=== PATIENT | female | born 1985 | race Caucasian/White ===

== ENCOUNTER → 2017-03-26 | Outpatient (CLI) | payer OTHER | LOC: M LAB 11:46 | PROVIDERS: ATTEND Obstetrics & Gynecology | DX: N97.9 Female infertility, unspecified (principal) ==

== ENCOUNTER → 2017-07-01 | Outpatient (CLI) | payer OTHER ==
--- NOTE | 2017-07-01 13:51 | REP ---
TRANSVAGINAL PELVIC SONOGRAPHY: HISTORY: Infertility study. FINDINGS: Uterine dimensions are normal at 8.1 x 5.3 x 5.9 cm. Endometrial echo is 0.9 cm thick. There is a Nabothian cyst in the cervix. Multiple tiny endometrial cystic changes are seen. No free fluid. Right ovary dimensions are 3.7 x 2.3 x 3.5 cm. The right ovary contains two follicles over a centimeter measured as follows: 1.0 x 0.5 and 1.0 x 0.6 cm. In addition there are 16 follicles in the right ovary ranging in size from 0.3-0.8 cm. The overall dimensions of the left ovary today are 4.3 x 2.4 x 2.7 cm. There are 37 follicles in the left ovary ranging in size from 0.1-0.9 cm. IMPRESSION: Transvaginal pelvic sonography, ovarian follicle study as above. Signed by Ramakrishna Mac MD 07/01/2017 03:59 P
[2017-07-01 14:12] LABS: HCG, SERUM QUANTITATIVE < 1.0 MIU/ML
[2017-07-02 11:13] LABS: LUTEINIZING HORMONE 14.2 mIU/mL; PROGESTERONE 0.3 NG/ML
[2017-07-02 11:14] LABS: ESTRADIOL 51.1 PG/ML
[2017-07-02 11:15] LABS: FOLLICLE STIMULATING HORMONE 7.1 mIU/mL
== END ==
LOC: M RAD 12:40 → M LAB 12:40
PROVIDERS: ATTEND Obstetrics & Gynecology Reproductive Endocrinology
DX: E28.9 Ovarian dysfunction, unspecified (principal)

== ENCOUNTER → 2017-07-16 | Outpatient (CLI) | payer OTHER ==
[2017-07-16 07:21] LABS: HCG, SERUM QUANTITATIVE < 1.0 MIU/ML; LUTEINIZING HORMONE 9.9 mIU/mL; PROGESTERONE < 0.2 NG/ML
[2017-07-16 07:22] LABS: ESTRADIOL 49.2 PG/ML; FOLLICLE STIMULATING HORMONE 6.9 mIU/mL
--- NOTE | 2017-07-16 07:44 | REP ---
Pelvic ultrasound, endovaginal imaging for follicle analysis: Right ovary: There are no follicles greater than 10 mm. There are approximately 18 follicles measuring 1.5 the 5.5 mm. There is a 6.2 mm involuting cyst. The right ovary is normal size measuring 4.4-0.0 x 2.3 cm. Left ovary: There are no follicles greater than 10 mm. There approximate 35 follicles measuring 2.0 to 7.9 mm. The left ovary is normal size measuring 3.8 x 2.5 x 2.5 cm. The uterus is retroverted and normal size measuring 7.8-5.0 x 6.3 cm. The endometrium is not thickened measuring 6.3 mm and has a trilaminar appearance. A Nabothian cyst is incidentally noted. Signed by Hitesh Hernandez MD 07/16/2017 07:36 A
== END ==
LOC: M LAB 06:35
PROVIDERS: ATTEND Obstetrics & Gynecology Reproductive Endocrinology
DX: N97.9 Female infertility, unspecified (principal)

== ENCOUNTER → 2017-07-23 | Outpatient (CLI) | payer OTHER ==
--- NOTE | 2017-07-23 08:26 | REP ---
Pelvic ultrasound for follicle analysis, endovaginal imaging: Right ovary: There are no follicles greater than 10 mm in diameter. There are 33 follicles measuring 2.1 - 8.3 mm. In addition there is a focal echogenic area measuring 0.6 x 0.4 centimeters. The right ovary is normal size measuring 4.3 x 3.0 x 2.5 cm. Left ovary: There is one follicle greater than 10 mm maximally measuring up to 11.9 mm. In addition, there are 19 follicles measuring 2.7 - 8.9 mm. The left ovary is normal size measuring 4.0 x 2.8 x 3.0 cm. Uterus: The uterus is retroverted and normal size measuring 7.4 x 5.3 x 6.2 cm. The endometrium is not thickened measuring up to 6.7 mm. There is a small volume of free fluid in the endometrial canal measuring 2.1 mm thickness. There is 1.7 mm calcification in the cervix adjacent to the endocervical canal. There is a trace of free fluid in the posterior cul-de-sac. Signed by Hitesh Hernandez MD 07/23/2017 08:17 A
[2017-07-23 08:48] LABS: ESTRADIOL 36.7 PG/ML; LUTEINIZING HORMONE 25.6 mIU/mL; PROGESTERONE < 0.2 NG/ML
== END ==
LOC: M RAD 06:30
PROVIDERS: ATTEND Obstetrics & Gynecology Reproductive Endocrinology
DX: E28.2 Polycystic ovarian syndrome (principal)

== ENCOUNTER → 2017-07-26 | Outpatient (CLI) | payer OTHER ==
--- NOTE | 2017-07-26 07:55 | REP ---
Pelvic ultrasound, endovaginal imaging only, stat request for follicle analysis: Right ovary: There is one follicle greater than 10 mm measuring up to 10.2 mm. Additionally, there are 22 follicles measuring 1.9 a 8.8 mm. Right ovary is normal size measuring 4.0 x 2.50 point 03/31. Left ovary: There is one follicle. 10 mm, measuring up to 15.8 mm. Additionally, there are 13 follicles measuring 0.1 to 7.6 mm. The left ovary is normal size measuring 4.7 x 2.4 x 2.8 cm. The uterus is retroverted and normal size measuring 7.5 x 4 point of by 5.4 cm. The endometrium is not thickened measuring 9.3 mm and the endometrium has a homogeneous echotexture. Signed by Hitesh Hernandez MD 07/26/2017 07:47 A
[2017-07-26 10:28] LABS: LUTEINIZING HORMONE 13.1 mIU/mL; PROGESTERONE 0.2 NG/ML
[2017-07-26 10:29] LABS: ESTRADIOL 89.7 PG/ML
== END ==
LOC: M RAD 06:29
PROVIDERS: ATTEND Obstetrics & Gynecology Reproductive Endocrinology
DX: N97.9 Female infertility, unspecified (principal)

== ENCOUNTER → 2017-07-28 | Outpatient (CLI) | payer OTHER ==
--- NOTE | 2017-07-28 07:58 | REP ---
Transvaginal pelvic sonography: History: Infertility study. Ovarian follicle assessment. Findings: Uterine dimensions today are 7.8 x 4.6 x 5.7 cm. Endometrial echo is 0.9 cm thick. There is a small calcification in the lower uterine segment. The overall dimensions of the right ovary are 4.5 x 2.9 x 2.9 cm. In the right ovary, there is a 1.0 x 0.7 cm follicle and 18 follicles are seen in the right ovary ranging in size from 0.3-0.9 cm. There is a 0.5 cm echogenic area in the right ovary which may be a small hemorrhagic follicle. The left ovary dimensions are 3.7 x 2.4 x 2.6 cm. There is a 1.8 x 1.8 cm follicle in the left ovary. In addition, the left ovary contains 12 follicles ranging in size from 0.3-0.9 cm. Impression: Ovarian follicle study as above. Please print and fax worksheet as preliminary report. Signed by Ramakrishna Mac MD 07/28/2017 08:17 A
[2017-07-28 09:25] LABS: LUTEINIZING HORMONE 19.7 mIU/mL; PROGESTERONE < 0.2 NG/ML
[2017-07-28 09:27] LABS: ESTRADIOL 170.9 PG/ML
== END ==
LOC: M RAD 06:35
PROVIDERS: ATTEND Obstetrics & Gynecology Reproductive Endocrinology
DX: N97.9 Female infertility, unspecified (principal)

== ENCOUNTER → 2017-08-13 | Outpatient (CLI) | payer OTHER ==
[2017-08-13 10:37] LABS: PROGESTERONE 24.1 NG/ML
== END ==
LOC: M LAB 07:25
PROVIDERS: ATTEND Obstetrics & Gynecology Reproductive Endocrinology
DX: Z32.00 Encounter for pregnancy test, result unknown (principal)

== ENCOUNTER → 2017-08-16 | Outpatient (CLI) | payer OTHER ==
[2017-08-16 11:48] LABS: PROGESTERONE 17.6 NG/ML
[2017-08-16 11:52] LABS: ESTRADIOL 234.4 PG/ML
== END ==
LOC: M LAB 07:10
PROVIDERS: ATTEND Obstetrics & Gynecology Reproductive Endocrinology
DX: Z32.01 Encounter for pregnancy test, result positive (principal)

== ENCOUNTER 2018-04-15 07:17 | Inpatient (IN) | payer OTHER ==
[2018-04-15 09:38] LABS: HEMATOCRIT 34.6 % (36.0-47.0); HEMOGLOBIN 11.2 g/dl (12.0-15.5); MEAN CORPUSCULAR HEMOGLOBIN 26.9 pg (27.0-33.0); MEAN CORPUSCULAR HGB CONC 32.4 g/dl (32.0-36.5); PLATELET COUNT, AUTOMATED 249 10^3/uL (150-450); RED BLOOD COUNT 4.17 10^6/uL (4.00-5.40); RED CELL DISTRIBUTION WIDTH 16.1 % (11.5-14.5)
[2018-04-15] MEDS: LR 1,000 ML IV ×2 (09:45→15:51)
[2018-04-15] MEDS: OXYTOCIN DRIP 30 UNITS in APPROPRIATE DILUENT 1 EA IV (09:46)
[2018-04-15] MEDS: LABETALOL 100 MG TAB PO ×2 (10:11→22:01)
[2018-04-15 10:34] LABS: AMPHETAMINES URINE REFLEX NEGATIVE (NEGATIVE); BARBITURATES URINE REFLEX NEGATIVE (NEGATIVE); BENZODIAZEPINES URINE REFLEX NEGATIVE (NEGATIVE); CANNABINOIDS URINE REFLEX NEGATIVE (NEGATIVE); COCAINE METABOLITE URINE REFLE NEGATIVE (NEGATIVE); METHADONE URINE REFLEX NEGATIVE (NEGATIVE); OPIATES URINE REFLEX NEGATIVE (NEGATIVE); PHENCYCLIDINE URINE REFLEX NEGATIVE (NEGATIVE)
[2018-04-15] MEDS ORDERED: ONDANSETRON 4MG/2ML VIAL (J2405) IV (13:15)
[2018-04-15] MEDS: PROMETHAZINE INJ 25 MG/ML VIAL (J2550) IV (15:05)
[2018-04-15] MEDS: BUTORPHANOL 2 MG/ML INJ (J0595) IV (15:06)
[2018-04-15] MEDS ORDERED: FENTANYL 2MCG/ML ROPIVACAINE 0.2% IN 0.9% NACL 200ML IVBAG As Ordered (16:44)
[2018-04-15] MEDS ORDERED: METHYLERGONOVINE MALEATE 0.2 MG TAB PO (23:45)
[2018-04-15] MEDS ORDERED: DOCUSATE SODIUM 100 MG CAP PO (23:45)
[2018-04-15] MEDS ORDERED: MEASLES,MUMPS,RUBELLA VACCINE INJ (MMR-II) (90707) SC (23:45)
[2018-04-15] MEDS ORDERED: ANUSOL HC CREAM 30GM TOP (23:45)
[2018-04-15] MEDS ORDERED: RHOGAM 300 MCG (1500 IU) INJ (J2790) IM (23:45)
[2018-04-16 00:17] LABS: CORD GAS ABE V -5.4; CORD GAS HCO3 V 21.6 MEQ/L; CORD GAS O2 SAT V 59.6 %; CORD GAS PCO2 V 47.5 mmHg; CORD GAS PH V 7.276 UNITS; CORD GAS SBC V 19.2 MEQ/L; CORD GAS TCO2 V 23.1 MEQ/L
[2018-04-16 00:22] LABS: CORD GAS ABE A -6.1; CORD GAS HCO3 A 20.7 MEQ/L; CORD GAS O2 SAT A 58.2 %; CORD GAS PCO2 A 45.5 mmHg; CORD GAS PH A 7.276 UNITS; CORD GAS PO2 A 26.3 mmHg; CORD GAS SBC A 18.6 MEQ/L; CORD GAS TCO2 A 22.1 MEQ/L
[2018-04-16] MEDS: IBUPROFEN 800 MG TAB PO ×3 (00:47→17:06)
[2018-04-16] MEDS: OXYTOCIN INJ 10 UNITS/ML VIAL (J2590) IV (02:24)
[2018-04-16] MEDS: ACETAMINOPHEN 500 MG TAB PO (06:07)
[2018-04-16 07:35] LABS: HEMATOCRIT 30.7 % (36.0-47.0); HEMOGLOBIN 10.4 g/dl (12.0-15.5); MEAN CORPUSCULAR HEMOGLOBIN 27.3 pg (27.0-33.0); MEAN CORPUSCULAR HGB CONC 33.9 g/dl (32.0-36.5); MEAN CORPUSCULAR VOLUME 80.6 fl (80.0-96.0); PLATELET COUNT, AUTOMATED 203 10^3/uL (150-450); RED BLOOD COUNT 3.81 10^6/uL (4.00-5.40); WHITE BLOOD COUNT 21.8 10^3/uL (4.0-10.0)
[2018-04-16] MEDS: PRENATAL VITAMINS CHEWABLE TABLET PO (08:41)
[2018-04-16] MEDS: LABETALOL 100 MG TAB PO ×2 (08:44→20:36)
[2018-04-16] MEDS: DIBUCAINE 1% OINTMENT 30GM TOP (17:10)
[2018-04-16] MEDS: MOM 30ML SUSPENSION UDC PO (17:10)
[2018-04-17] MEDS: PRENATAL VITAMINS CHEWABLE TABLET PO (08:24)
[2018-04-17] MEDS: LABETALOL 100 MG TAB PO (08:25)
[2018-04-17] MEDS: IBUPROFEN 800 MG TAB PO (08:25)
== END 2018-04-17 13:50 | disposition home or self-care (01) | DRG 774 ==
LOC: M LDI 07:17 → M OBS 04-16 01:20
PROC: 10E0XZZ Delivery of Products of Conception, External Approach (ICD-10-PCS; principal; 2018-04-15)
PROC: 0HQ9XZZ Repair Perineum Skin, External Approach (ICD-10-PCS; 2018-04-15)
PROC: 3E033VJ Introduction of Other Hormone into Peripheral Vein, Percutaneous Approach (ICD-10-PCS; 2018-04-15)
DX: O10.92 Unspecified pre-existing hypertension complicating childbirth (principal); O34.211 Maternal care for low transverse scar from previous cesarean delivery; Z37.0 Single live birth; Z3A.39 39 weeks gestation of pregnancy; E28.2 Polycystic ovarian syndrome; O99.284 Endocrine, nutritional and metabolic diseases complicating childbirth; O70.0 First degree perineal laceration during delivery; O69.1XX0 Labor and delivery complicated by cord around neck, with compression, not applicable or unspecified; Z68.38 Body mass index [BMI] 38.0-38.9, adult